=== PATIENT | female | born 1970 | race Caucasian/White ===

== ENCOUNTER 2017-02-07 19:59 | Inpatient (IN) | payer OTHER ==
[~2017-02-07] VITALS: Ht 160 cm; Wt 88.4 kg
[~2017-02-07 19:59] MED LIST: ALBU0.08 INH; ALBU1AER9 INH; ASPI325T39 PO; ATOR-24 PO; ATV/1 PO; EPP3/2 INJ; FLUD0.1T10 PO; LAMO25TA PO; LORA-741 PO; MOME100A INH; OMEP40CA PO; ONDA4TAB46 PO; OXYC1TAB3 PO; PREG1CAP28 PO; QUET-115 PO; ROPI3TAB PO; SERT1TAB92 PO; TEMA30CA4 PO; TOPI50TA16 PO
[2017-02-07 21:50] VITALS: BP 124/84; PULSE 69; TEMP 36.7; O2SAT 94; Ht 160 cm; Wt 88.4 kg
[2017-02-07] MEDS ORDERED: LORAZEPAM 2 MG/ML 1 ML VIAL IV PRN (22:00)
[2017-02-07] MEDS ORDERED: LAMO150T32 PO (22:26)
[2017-02-07] MEDS ORDERED: SODIUM CHLORIDE 0.9% 1000ML 1,000 ML IV SCH (22:30)
[2017-02-07] MEDS ORDERED: KETOROLAC TROMETHAMINE 15 MG/ML VIAL IV PRN (22:30)
[2017-02-07] MEDS ORDERED: ROPI4TAB3 PO (22:32)
[2017-02-07] MEDS ORDERED: BACL10TA PO (22:34)
[2017-02-07] MEDS ORDERED: OXYC15TA89 PO (22:36)
[2017-02-07] MEDS ORDERED: FURO-85 PO (22:38)
[2017-02-07] MEDS ORDERED: SUMA50TA15 PO (22:38)
[2017-02-07] MEDS ORDERED: DICL-201 PO (22:39)
--- NOTE | 2017-02-07 22:43 | History and Physical ---
History & Physical Date & Time of Service: February 07, 2017 at 22:32 Chief Complaint: Seizures Primary Care Physician: Sue Horta PA-C History of Present Illness Source: patient, clinic records, hospital records 46 year old female with history of Migraine, Pseudoseizures/Seizure, Chronic Back Pain, Depression and Anxiety, Asthma/COPD, presenting with seizure like episodes and syncope. Follows with Dr. Zurita for PCP and Dr. Varela for Neurology. Patient was at her baseline health until 1 week ago when she started to have generalized headaches, typical of her migraine. She was taking Imitrex as needed with provided some relief. Yesterday, patient apparently had witnessed seizure like episodes -"thrashing". Patient was not aware when this episodes are happening, and feels disoriented after. She had a witnessed seizure episode during a clinic visit yesterday, was sent to [place] [facility], with unremarkable work up and was discharged home. Today, patient was walking her driveway then felt weak, dizzy, and passed out hitting her head on the ground. Patient regained consciousness but was apparently having intermittent seizure like episodes again. Patient was brought again at [place] [facility], CT head unremarkable. Lamictal level pending. She was transferred to [facility] per family request. On my exam, patient seems drowsy but oriented x 3, answers questions appropriately. Main symptom is generalized headache, typical of her migraine episodes. Denies focal weakness/numbness, nausea, changes with vision, chest pain, dyspnea , palpitations, abdominal pain, changes with urination or BM. No other symptoms. Past Medical/Surgical History Medical Problems: (1) Asthma Status: Chronic (2) Chronic migraine Status: Chronic (3) Pseudoseizures Status: Chronic (4) Spinal cord stimulator status Status: Resolved Surgical Problems: (1) Previous back surgery Status: Resolved Family History Diabetes mellitus FHx: cancer FHx: heart disease Hypertension Kidney disease Kidney stones Seizures Social History Smoking Status: Current Every Day Smoker Drug Use: none Marital Status: Housing status: lives with family Occupational Status: unemployed Allergies Coded Allergies: Fentanyl (Verified Allergy, Severe, GI SYMPTOMS, 01/29/16) Morphine (Verified Allergy, Severe, GI SYMPTOMS, 01/29/16) Rofecoxib (Verified Allergy, Severe, HIVES, 01/29/16) Acetaminophen (Verified Allergy, Unknown, RASH, 01/29/16) Celecoxib (Verified Allergy, Unknown, RASH, 01/29/16) Doxycycline (Verified Allergy, Unknown, SWEATING, ITCHING, 01/29/16) Propoxyphene (Verified Allergy, Unknown, RASH, 01/29/16) Zolpidem (Verified Allergy, Unknown, UNKNOWN, 01/29/16) Home Medications Scheduled Aspirin (Aspirin Ec), 325 MG PO DAILY Atorvastatin (Lipitor), 40 MG PO HS Epinephrine (Epipen 2-Javier), 1 DOSE INJ PRN UD Fludrocortisone Acetate (Florinef), 0.1 MG PO BID Lamotrigine (Lamictal), 1 TAB PO BID Lorazepam (Ativan), 0.5 MG PO BID Lorazepam (Ativan), 1 MG PO HS Mometasone Furoate-Formoterol (Dulera 100/5 Mcg), 2 AER INH BID Omeprazole (Prilosec), 40 MG PO DAILY Pregabalin (Lyrica), 75 MG PO BID Quetiapine Fumarate (Quetiapine Fumarate), 150 MG PO HS Ropinirole (Requip), 3 MG PO HS Sertraline HCl (Sertraline HCl), 100 MG PO QAM Topiramate (Topamax), 50 MG PO BID Scheduled PRN Albuterol (Proair Hfa), 2 PUFF INH Q4 PRN for SOB/Wheezing Albuterol Soln (Proventil 0.083% 2.5MG/3ML), 2.5 MG INH Q4 PRN for SOB/Wheezing Ondansetron Hcl (Zofran), 4 MG PO Q8 PRN for Nausea Oxycodone Ir (Roxicodone Ir), 1 TAB PO Q6 PRN for Pain Temazepam (Restoril), 30 MG PO HS PRN for Sleep Review of Systems Constitutional- no fever; no weight loss Eyes- no acute visual changes ENT- no sinus drainage; no pharyngitis Pulmonary- no cough, no wheezing, no shortness of breath Cardiac- no chest pain, no palpitations, no orthopnea, no dependent edema GI- no nausea, no vomiting, no diarrhea, no melena, no hematochezia - no dysuria, no hematuria Musculoskeletal- no arthralgias, no myalgias Derm- no rashes, no new skin lesions, no changing skin lesions Hematologic- no unusual bruising, no unusual bleeding Lymphatics- no adenopathy Endocrine- no polyuria or polydipsia; no heat or cold intolerance Neuro- (+) as noted above Psych- no anxiety, no depression Physical Exam Vital Signs Date Time Temp Pulse Resp B/P Pulse Ox O2 Delivery O2 Flow Rate FiO2 02/07/17 21:50 36.7 69 16 124/84 94 Nasal Cannula 2.0 General Appearance: WD/WN, no apparent distress Head: normocephalic, atraumatic Eyes: normal inspection, PERRL, EOMI, sclerae normal ENT: normal ENT inspection, hearing grossly normal, pharynx normal Neck: supple, no adenopathy, thyroid normal, no JVD, + adenopathy present Respiratory/Chest: chest non-tender, lungs clear, normal breath sounds, no respiratory distress, no accessory muscle use Cardiovascular: regular rate, rhythm, no edema, no JVD, no murmur, normal peripheral pulses Abdomen/GI: normal bowel sounds, non tender, soft, no organomegaly Back: normal inspection, no CVA tenderness Extremities/Musculoskelatal: normal inspection, no calf tenderness, no pedal edema, normal range of motion 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 SYNCOPE s/p FALL - from orthostasis? vasovagal from pain secondary to headache? - preceded by weakness, dizziness - CT head from [place] today no acute process - check orthostatic VS IV fluids - EKG SEIZURE LIKE EPISODES - history of pseudoseizures - continue Lamictal - Seizure precautions MIGRAINE HEADACHE - start Prednisone taper - Imitrex PRN - patient has allergy to NSAIDs and Tylenol - discussed above with Dr. Magana CHRONIC BACK PAIN - continue usual medications DEPRESSION AND ANXIETY - stable per patient - continue usual medications ASTHMA, COPD, SMOKING - stable DVT prophylaxis SCDs fall risk, will avoid anticoag for now Full Code per patient Disposition pending PT/OT eval lives with family Advanced Directives Existing Living Will: Yes Existing Power of [employer] Dietary Service Supervisor: No VTE Prophylaxis VTE Risk Assessment Done? Y/N: Yes Risk Level: Moderate Given or contraindicated: SCD's
[2017-02-07 22:44] LABS: BASO % 0.5 %; BASO ABS # 0.04 K/uL (0-0.2); COMPLETE YES; EOS % 3.5 %; HEMATOCRIT 39.2 % (37-47); IG% 0.1 %; LYMPH ABS # 3.55 K/uL (1.2-3.4); MEAN CELL VOLUME 90.3 fL (80-100); MEAN CORPUSCULAR HGB CONC 32.1 g/dl (32-36); MEAN PLATELET VOLUME 10.9 fL (7.4-10.4); MONO % 4.4 %; NEUT % 51.5 %; PLATELET COUNT 249 K/uL (130-400); RED BLOOD COUNT 4.34 M/uL (4.2-5.4); WHITE BLOOD COUNT 8.87 K/uL (4.8-10.8)
[2017-02-07] MEDS ORDERED: TEMAZEPAM 15 MG CAP PO PRN (22:45)
--- NOTE | 2017-02-07 22:48 | DIAGNOSTIC IMAGING REPORT ---
SINGLE VIEW CHEST CLINICAL HISTORY: Seizure. FINDINGS: An AP, portable, upright chest radiograph is compared to study dated 01/29/2016. The examination is degraded by portable technique and apical lordotic positioning. The cardiomediastinal silhouette is unremarkable. Chronic interstitial thickening is unchanged. There is no airspace consolidation or pleural effusion. No pneumothorax is seen. The skeletal structures are osteopenic. The bony thorax is grossly intact. Intrathecal leads project over the lower thoracic spine. IMPRESSION: No acute cardiopulmonary abnormality. Electronically signed by: David Chaves M.D. 02/07/2017 10:47 PM Dictated Date/Time: 02/07/2017 10:46 PM
[2017-02-07] MEDS ORDERED: D5W AND NSS 1,000 ML IV SCH (23:00)
[2017-02-07 23:09] LABS: BUN/CREATININE RATIO 13.8 (10-20); CALCIUM 8.5 mg/dl (8.5-10.1); CREATININE 0.86 mg/dl (0.60-1.20); MAGNESIUM 2.4 mg/dl (1.8-2.4); POTASSIUM 3.8 mmol/L (3.5-5.1)
[2017-02-07 23:18] VITALS: BP 112/70; PULSE 63; TEMP 36.6; O2SAT 96
[2017-02-07 23:20] VITALS: BP 116/81; PULSE 71; O2SAT 97
[2017-02-07 23:23] VITALS: BP 121/83; PULSE 72; O2SAT 96
[2017-02-07] MEDS: LORAZEPAM 1 MG TAB PO SCH (23:45)
[2017-02-08] VITALS (9 sets, daily range): BP systolic 108–145; BP diastolic 66–84; PULSE 62–83; TEMP 36.6–37; O2SAT 95–98
[2017-02-08] MEDS: SUMATRIPTAN SUCCINATE 50 MG TAB PO PRN ×2 (00:22→18:10)
[2017-02-08] MEDS: PREGABALIN 75 MG CAP PO SCH ×3 (00:24→21:46)
[2017-02-08 05:20] LABS: URINE APPEARANCE CLEAR (CLEAR); URINE BILIRUBIN NEG (NEG); URINE COLOR YELLOW; URINE NITRITE NEG (NEG); URINE SPECIFIC GRAVITY 1.019 (1.000-1.030); UROBILINOGEN NEG (NEG)
[2017-02-08 05:21] LABS: MANUAL MICROSCOPIC REQUIRED? NO; REVIEW REQ? NO
[2017-02-08 06:43] LABS: BASO % 0.4 %; BASO ABS # 0.03 K/uL (0-0.2); COMPLETE YES; EOS % 0.4 %; HEMATOCRIT 43.2 % (37-47); IG% 0.1 %; LYMPH % 21.3 %; LYMPH ABS # 1.53 K/uL (1.2-3.4); MEAN CELL VOLUME 91.3 fL (80-100); MEAN CORPUSCULAR HGB CONC 32.9 g/dl (32-36); MEAN PLATELET VOLUME 11.1 fL (7.4-10.4); MONO % 1.7 %; NEUT % 76.1 %; PLATELET COUNT 264 K/uL (130-400); RED BLOOD COUNT 4.73 M/uL (4.2-5.4)
[2017-02-08 07:23] LABS: BUN/CREATININE RATIO 10.3 (10-20); CALCIUM 9.1 mg/dl (8.5-10.1); CREATININE 0.89 mg/dl (0.60-1.20); MAGNESIUM 2.5 mg/dl (1.8-2.4); POTASSIUM 4.9 mmol/L (3.5-5.1)
[2017-02-08] MEDS: LORAZEPAM 0.5 MG TAB PO SCH ×2 (08:26→14:37)
[2017-02-08] MEDS: TOPIRAMATE 50 MG TAB PO SCH ×2 (08:30→21:46)
[2017-02-08] MEDS: DICLOFENAC SOD EC 75 MG TABCR PO SCH ×2 (08:31→21:46)
[2017-02-08] MEDS: FLUDROCORTISONE ACETATE 0.1 MG TAB PO SCH ×2 (08:31→21:45)
[2017-02-08] MEDS: SERTRALINE HCL 100 MG TAB PO SCH (08:32)
[2017-02-08] MEDS: PANTOprazole SOD 40 MG TAB PO SCH (08:32)
[2017-02-08] MEDS: BACLOFEN 10 MG TAB PO SCH ×3 (08:32→21:46)
[2017-02-08] MEDS: ASPIRIN 325 MG ECTAB PO SCH (08:32)
[2017-02-08] MEDS: OXYCODONE HCL IR 5 MG TAB (IMMEDIATE RELEASE) PO PRN (11:01)
--- NOTE | 2017-02-08 13:37 | PROGRESS NOTE ---
DATE: 02/08/2017 FOR: Dr. Hackett. SUBJECTIVE: Bruna is 46 years old, is known to [facility] and has seen Dr. Varela over the years for what has been termed pseudoseizures and migraine-like headaches. The pseudoseizures were documented by absence of EEG abnormalities on a monitoring study done in [place] years ago, but she has continued to have some events that might have a true organic seizure qualities to them and it was very difficult to tell the difference. She had done well; however, on Lamictal at least in terms of her seizures on the current dose of 150 mg twice a day. At one time, she was on Topamax for headaches and the seizures, but this was to be stopped because of kidney stones and unfortunately her chronic migraines did not respond very well to the Lamictal. She went at least 8 months without any events and did manage to get her license back after [address] being able drive. About a week ago, she started having more generalized headaches, typical for migraine. She was taken Imitrex as needed, probably excessively and then yesterday had events of thrashing, which she now thinks were typical of her pseudoseizures but there was one event during which she became unresponsive, fell and struck the back of her head and apparently had a seizure episode during a clinic visit and was sent to the [place] [facility]. Workup was unremarkable. She was sent home, but then she has had more twitching events and was finally brought here to [facility] at the family's request. Since admission yesterday, she has had increased headaches, but has had no events of seizure like activity. Other medical problems include asthma, the chronic migraines, seizures and pseudoseizures. She has had a spinal cord stimulator on board for chronic intractable back pain. She has had prior back surgery. FAMILY HISTORY: Positive for diabetes, cancer, heart disease, hypertension, kidney disease, kidney stones and apparently seizures in other family members. SOCIAL HISTORY: Reveals her to be an everyday smoker. She is . She lives with family. She does not consume ethanol. She denies the use of illicit drugs. MEDICATION ALLERGIES: INCLUDE FENTANYL, MORPHINE, ROFECOXIB, ACETAMINOPHEN, CELECOXIB, DOXYCYCLINE, PROPOXYPHENE, AND ZOLPIDEM. ACTIVE MEDICATIONS: Include aspirin, atorvastatin, epinephrine as needed, Florinef, Lamictal 150 mg twice a day, lorazepam as needed, mometasone, omeprazole, Lyrica 75 mg twice a day, Seroquel 150 mg at bedtime, Requip 3 mg at bedtime, sertraline 100 mg in the morning and Topamax which I thought she was not taking and as listed as on board twice a day. As-needed medications include albuterol, Zofran and oxycodone which she claims she is not taking more than every 6 hours and temazepam. REVIEW OF SYSTEMS: Systems review reveals no recent fevers, sweats, chills. No new issues of her head, eyes, ears, nose and throat other than pain now at the site of where her head struck apparently the floor or the back of the chair and on the right occipital region. She has had no new cardiovascular, pulmonary, gastrointestinal, genitourinary, or musculoskeletal issues. Neurologically, she has had headaches which are chronic and essentially daily, which have increased over the past week and now the seizure-like activity, most of which is probably pseudoseizure, at least according to her self assessment, one of which may have been a valid suture. PHYSICAL EXAMINATION: VITAL SIGNS: Her blood pressure was 124/64, pulse was 69, and respirations were 16. She was afebrile. She was moderately over nourished. HEENT: Examination was unremarkable. There was some tenderness over the right parietal and occipital scalp. NECK: Supple. No bruits were heard. LUNGS: Were clear. HEART: Had a regular rhythm. There were no abdominal masses. Bowel sounds were normal. EXTREMITIES: Free of edema. NEUROLOGICALLY: Today, she is awake, alert, oriented in 3 spheres. She has normal extraocular movements and has a little significant tremor of the outstretched hands, worse with intension to some degree. I do not see any myoclonus or asterixis. She has hypoactive but present reflexes. Toes are downgoing. No Gomez signs are seen. Strength testing is normal. Sensation is intact. Cranial nerve examination again reveals normal extraocular movements, normal visual clark, normal facial motility and strength, clear speech and tongue protruding in the midline. DATA: CAT scan in [facility] said to be negative. Basic laboratory studies are unremarkable. IMPRESSION AND PLAN: At this point, it is not clear what happened in her case. The fall she described could have been mediated by some hypotension, could have been a true seizure as there is always a question in individuals like her about whether all of the events are pseudo events or whether there may be some true underlying seizure activity. Whatever the case, none of this has recurred since she was admitted and we are just going to observe her, I suspect overnight or may be for another day or so. The headaches are worse and perhaps this was a precipitating event and I am not sure if she was taking excessive amounts of her medications, although she denies it. At this point, I am just going to suggest we check an EEG. Unfortunately, we really do not have the facilities here to do continuous EEG monitoring. So if she begins to have more and more of these events, we are going to need to transfer to an institution where this monitoring would be available and that would have to be [facility] depending on her insurance coverages I would like to keep her Lamictal dose the same as it has been adequate over the last year to control her seizure like activity. I am going to add some steroids since this will break the headaches and I have already discussed this with Dr. Hackett last night. For now, she does seem a little better according to her self assessment. I will check her tomorrow. We may or may not get the EEG done this weekend. Again, I think this is going to be an academic question as I suspect tracing will be normal. ADALID
[2017-02-08] MEDS ORDERED: NURSING VERBAL MED ORDER ONE (14:30)
--- NOTE | 2017-02-08 15:38 | Progress Note ---
Internal Med Progress Note Date of Service: February 08, 2017. Provider Documentation: SUBJECTIVE: The patient was seen and examined No more episode of seizure Headache is better Denies any other symptoms OBJECTIVE: Vital Signs-as noted below Exam: General-No distress at rest Eyes-normal ENT-normal Neck-Supple Lungs-Clear to ausucltate bilaterally Heart-Regular,no murmur Abdomen-Benign,no masses,bowel sound present Extremities-no edema Neuro-AAOx3 No focal neuro deficit Lab data as noted below. ASSESSMENT & PLAN: SYNCOPE with FALL -differential could be due to vasovagal attack secondary to headache,seizures with history of Pseudoseizures - preceded by weakness, dizziness ad followed by fall -minor head injury - CT head from [place] [facility] -no significant lab abnormalities -IV fluids SEIZURE LIKE EPISODES - history of pseudoseizures - continue Lamictal - Seizure precautions -no more episodes -Neurology evaluation -appreciate input -EEG MIGRAINE HEADACHE - start Prednisone taper - Imitrex PRN - patient has allergy to NSAIDs and Tylenol CHRONIC BACK PAIN - continue usual medications DEPRESSION AND ANXIETY - stable per patient - continue usual medications ASTHMA, COPD, SMOKING - stable DVT prophylaxis SCDs fall risk, will avoid anticoag for now Full Code per patient Disposition PT/OT eval lives with family Vital Signs: Date Time Temp Pulse Resp B/P Pulse Ox O2 Delivery O2 Flow Rate FiO2 02/08/17 13:01 36.8 83 20 127/77 95 Room Air 02/08/17 12:00 98 Nasal Cannula 2.0 02/08/17 08:00 98 Nasal Cannula 2.0 02/08/17 07:25 37.0 77 20 125/78 96 02/08/17 04:00 Nasal Cannula 2.0 02/08/17 03:16 36.8 65 17 113/73 97 Nasal Cannula 2.0 02/07/17 23:59 Nasal Cannula 2.0 02/07/17 23:23 72 18 121/83 96 Nasal Cannula 2.0 02/07/17 23:20 71 18 116/81 97 Nasal Cannula 2.0 02/07/17 23:18 36.6 63 18 112/70 96 Nasal Cannula 2.0 02/07/17 21:50 36.7 69 16 124/84 94 Nasal Cannula 2.0 Lab Results: Results Past 24 Hours Test 02/07/17 22:32 02/08/17 00:00 02/08/17 06:33 Range/Units White Blood Count 8.87 7.20 4.8-10.8 K/uL Red Blood Count 4.34 4.73 4.2-5.4 M/uL Hemoglobin 12.6 14.2 12.0-16.0 g/dL Hematocrit 39.2 43.2 37-47 % Mean Corpuscular Volume 90.3 91.3 80-100 fL Mean Corpuscular Hemoglobin 29.0 30.0 25-34 pg Mean Corpuscular Hemoglobin Concent 32.1 32.9 32-36 g/dl Platelet Count 249 264 130-400 K/uL Mean Platelet Volume 10.9 11.1 7.4-10.4 fL Neutrophils (%) (Auto) 51.5 76.1 % Lymphocytes (%) (Auto) 40.0 21.3 % Monocytes (%) (Auto) 4.4 1.7 % Eosinophils (%) (Auto) 3.5 0.4 % Basophils (%) (Auto) 0.5 0.4 % Neutrophils # (Auto) 4.57 5.48 1.4-6.5 K/uL Lymphocytes # (Auto) 3.55 1.53 1.2-3.4 K/uL Monocytes # (Auto) 0.39 0.12 0.11-0.59 K/uL Eosinophils # (Auto) 0.31 0.03 0-0.5 K/uL Basophils # (Auto) 0.04 0.03 0-0.2 K/uL RDW Standard Deviation 45.1 45.9 36.4-46.3 fL RDW Coefficient of Variation 13.6 13.6 11.5-14.5 % Immature Granulocyte % (Auto) 0.1 0.1 % Immature Granulocyte # (Auto) 0.01 0.01 0.00-0.02 K/uL Sodium Level 147 145 136-145 mmol/L Potassium Level 3.8 4.9 3.5-5.1 mmol/L Chloride Level 111 110 98-107 mmol/L Carbon Dioxide Level 29 31 21-32 mmol/L Anion Gap 7.0 4.0 3-11 mmol/L Blood Urea Nitrogen 12 9 7-18 mg/dl Creatinine 0.86 0.89 0.60-1.20 mg/dl Est Creatinine Clear Calc Drug Dose 84.0 80.7 ml/min Estimated GFR () 93.2 89.5 Estimated GFR (Non- 80.4 77.2 BUN/Creatinine Ratio 13.8 10.3 10-20 Random Glucose 107 139 70-99 mg/dl Calcium Level 8.5 9.1 8.5-10.1 mg/dl Magnesium Level 2.4 2.5 1.8-2.4 mg/dl Urine Color YELLOW Urine Appearance CLEAR CLEAR Urine pH 6.0 4.5-7.5 Urine Specific [place] 1.019 1.000-1.030 Urine Protein NEG NEG Urine Glucose (UA) NEG NEG Urine Ketones NEG NEG Urine Occult Blood NEG NEG Urine Nitrite NEG NEG Urine Bilirubin NEG NEG Urine Urobilinogen NEG NEG Urine Leukocyte Esterase NEG NEG
[2017-02-08] MEDS: LORAZEPAM 1 MG TAB PO SCH (21:45)
[2017-02-08] MEDS: QUETIAPINE FUMARATE 100 MG TAB PO SCH (21:46)
[2017-02-08] MEDS: ROPINIROLE HCL 1 MG TAB PO SCH (21:46)
[2017-02-08] MEDS: ATORVASTATIN 40 MG TAB PO SCH (21:46)
[2017-02-09] VITALS (9 sets, daily range): BP systolic 101–138; BP diastolic 63–97; PULSE 63–83; TEMP 36.4–36.8; O2SAT 93–98
[2017-02-09 06:26] LABS: BASO % 0.2 %; BASO ABS # 0.02 K/uL (0-0.2); COMPLETE YES; EOS % 1.9 %; HEMATOCRIT 38.2 % (37-47); IG% 0.1 %; LYMPH % 38.8 %; LYMPH ABS # 4.38 K/uL (1.2-3.4); MEAN CELL VOLUME 90.7 fL (80-100); MEAN CORPUSCULAR HEMOGLOBIN 30.4 pg (25-34); MEAN CORPUSCULAR HGB CONC 33.5 g/dl (32-36); MEAN PLATELET VOLUME 11.1 fL (7.4-10.4); PLATELET COUNT 242 K/uL (130-400); RED BLOOD COUNT 4.21 M/uL (4.2-5.4)
[2017-02-09 06:59] LABS: BUN/CREATININE RATIO 10.4 (10-20); CALCIUM 8.8 mg/dl (8.5-10.1); CREATININE 0.98 mg/dl (0.60-1.20); MAGNESIUM 2.5 mg/dl (1.8-2.4); POTASSIUM 3.6 mmol/L (3.5-5.1)
[2017-02-09] MEDS: LORAZEPAM 0.5 MG TAB PO SCH ×2 (07:48→16:00)
[2017-02-09] MEDS: PREGABALIN 75 MG CAP PO SCH ×2 (07:48→20:44)
[2017-02-09] MEDS: TOPIRAMATE 50 MG TAB PO SCH ×2 (07:49→20:44)
[2017-02-09] MEDS: BACLOFEN 10 MG TAB PO SCH ×3 (07:49→20:46)
[2017-02-09] MEDS: DICLOFENAC SOD EC 75 MG TABCR PO SCH ×2 (07:49→20:45)
[2017-02-09] MEDS: FLUDROCORTISONE ACETATE 0.1 MG TAB PO SCH ×2 (07:50→20:44)
[2017-02-09] MEDS: PANTOprazole SOD 40 MG TAB PO SCH (07:50)
[2017-02-09] MEDS: SERTRALINE HCL 100 MG TAB PO SCH (07:50)
[2017-02-09] MEDS: ASPIRIN 325 MG ECTAB PO SCH (07:50)
[2017-02-09] MEDS: SUMATRIPTAN SUCCINATE 50 MG TAB PO PRN (07:51)
--- NOTE | 2017-02-09 11:24 | Progress Note ---
Internal Med Progress Note Date of Service: February 09, 2017. Provider Documentation: SUBJECTIVE: The patient was seen and examined No more episode of seizure Headache is worse today Denies any other symptoms OBJECTIVE: Vital Signs-as noted below Exam: General-No distress at rest Eyes-normal ENT-normal Neck-Supple Lungs-Clear to ausucltate bilaterally Heart-Regular,no murmur Abdomen-Benign,no masses,bowel sound present Extremities-no edema Neuro-AAOx3 No focal neuro deficit Lab data as noted below. ASSESSMENT & PLAN: SYNCOPE with FALL -differential could be due to vasovagal attack secondary to headache,seizures with history of Pseudoseizures - preceded by weakness, dizziness ad followed by fall -minor head injury - CT head from [place] [facility] -no significant lab abnormalities -Clinically better today except some headache SEIZURE LIKE EPISODES - history of pseudoseizures - continue Lamictal - Seizure precautions -no more episodes of seizure and or pseudoseizure -Neurology evaluation -appreciate input -EEG -pending MIGRAINE HEADACHE - start Prednisone taper - Imitrex PRN - patient has allergy to NSAIDs and Tylenol -Will increase Imitrex to 100 mg CHRONIC BACK PAIN - continue usual medications DEPRESSION AND ANXIETY - stable per patient - continue usual medications ASTHMA, COPD, SMOKING - stable DVT prophylaxis SCDs fall risk, will avoid anticoag for now Full Code per patient Disposition PT/OT danielle lives with family Discussed with the Vital Signs: Date Time Temp Pulse Resp B/P Pulse Ox O2 Delivery O2 Flow Rate FiO2 02/09/17 08:00 96 Room Air 02/09/17 07:59 36.8 63 17 113/63 96 Room Air 02/09/17 04:20 36.6 70 16 101/68 93 Room Air 02/09/17 04:00 Room Air 02/09/17 00:02 Room Air 02/08/17 23:49 36.7 62 18 108/66 96 Room Air 02/08/17 20:00 Room Air 02/08/17 19:17 36.6 65 20 145/74 97 Room Air 139/82 132/84 02/08/17 16:00 97 Nasal Cannula 2.0 02/08/17 15:33 36.7 73 20 126/69 95 Room Air 02/08/17 13:01 36.8 83 20 127/77 95 Room Air 02/08/17 12:00 98 Nasal Cannula 2.0 Lab Results: Results Past 24 Hours Test 02/09/17 06:05 Range/Units White Blood Count 11.30 4.8-10.8 K/uL Red Blood Count 4.21 4.2-5.4 M/uL Hemoglobin 12.8 12.0-16.0 g/dL Hematocrit 38.2 37-47 % Mean Corpuscular Volume 90.7 80-100 fL Mean Corpuscular Hemoglobin 30.4 25-34 pg Mean Corpuscular Hemoglobin Concent 33.5 32-36 g/dl Platelet Count 242 130-400 K/uL Mean Platelet Volume 11.1 7.4-10.4 fL Neutrophils (%) (Auto) 52.0 % Lymphocytes (%) (Auto) 38.8 % Monocytes (%) (Auto) 7.0 % Eosinophils (%) (Auto) 1.9 % Basophils (%) (Auto) 0.2 % Neutrophils # (Auto) 5.89 1.4-6.5 K/uL Lymphocytes # (Auto) 4.38 1.2-3.4 K/uL Monocytes # (Auto) 0.79 0.11-0.59 K/uL Eosinophils # (Auto) 0.21 0-0.5 K/uL Basophils # (Auto) 0.02 0-0.2 K/uL RDW Standard Deviation 44.7 36.4-46.3 fL RDW Coefficient of Variation 13.6 11.5-14.5 % Immature Granulocyte % (Auto) 0.1 % Immature Granulocyte # (Auto) 0.01 0.00-0.02 K/uL Sodium Level 144 136-145 mmol/L Potassium Level 3.6 3.5-5.1 mmol/L Chloride Level 109 98-107 mmol/L Carbon Dioxide Level 29 21-32 mmol/L Anion Gap 6.0 3-11 mmol/L Blood Urea Nitrogen 10 7-18 mg/dl Creatinine 0.98 0.60-1.20 mg/dl Est Creatinine Clear Calc Drug Dose 73.3 ml/min Estimated GFR () 79.6 Estimated GFR (Non- 68.7 BUN/Creatinine Ratio 10.4 10-20 Random Glucose 115 70-99 mg/dl Calcium Level 8.8 8.5-10.1 mg/dl Magnesium Level 2.5 1.8-2.4 mg/dl
[2017-02-09] MEDS: OXYCODONE HCL IR 5 MG TAB (IMMEDIATE RELEASE) PO PRN (12:20)
--- NOTE | 2017-02-09 13:02 | PROGRESS NOTE ---
DATE: 02/09/2017 Bruna has had no further seizure-like episodes since admission. EEG is normal, which is not unexpected in light of her history of pseudoseizures with some question remaining about how valid her true seizure frequency might be. Her headache is not much better, although she reported to Dr. Kelsey today that it was, but when I was in the room, she claimed it was not. She certainly does not appear to be in a lot of distress. Her exam is normal. The tremor that was fairly prominent on my exam yesterday is almost gone now and at this point I am simply going to suggest we wait her headache out, continue the steroid tapering, maintain her other medications without raising the Lamictal and hopefully by tomorrow should be able to be discharged to home with followup with Dr. Varela. I will check back with her tomorrow or later in the afternoon. ADALID
--- NOTE | 2017-02-09 14:25 | ELECTROENCEPHALOGRAPH REPORT ---
REQUESTING: Dr. Magana. CLINICAL DIAGNOSIS: History of seizures and pseudoseizures with recent increased headaches and seizure-like activity. ELECTROENCEPHALOGRAM DIAGNOSIS: Essentially normal during wakefulness. DESCRIPTION OF TRACING: This EEG was done as a bedside recording without a simultaneous video analysis of patient movement and behavior. Photic stimulation was performed. Hyperventilation was not and drowsiness and light sleep were not seen. During wakefulness, there is evidence for a well-developed background rhythm in the alpha range of up to 9-10 Hz of maximum frequency and 40-50 microvolts of maximum amplitude. This is maximum posterior head regions bilaterally symmetrical. Polymorphic mid to upper frequency modest voltage theta activity is seen over all head regions without clear focal or regional predominance. Anterior head region maximum bilaterally symmetrical low voltage fast activity in the beta range is present. At no time during the waking tracing is there evidence for potentially epileptogenic activity in the form of polyspike or spike wave bursts, focal sharp waves or focal spikes. INTERPRETATION: This EEG is essentially normal during wakefulness without evidence for focal or generalized encephalopathy and without evidence for potentially epileptogenic activity.
[2017-02-09] MEDS: LORAZEPAM 1 MG TAB PO SCH (20:43)
[2017-02-09] MEDS: ROPINIROLE HCL 1 MG TAB PO SCH (20:44)
[2017-02-09] MEDS: QUETIAPINE FUMARATE 100 MG TAB PO SCH (20:45)
[2017-02-09] MEDS: ATORVASTATIN 40 MG TAB PO SCH (20:46)
[2017-02-09] MEDS ORDERED: SUMATRIPTAN SUCCINATE 50 MG TAB PO PRN (21:00)
[2017-02-10] VITALS (10 sets, daily range): BP systolic 98–142; BP diastolic 55–98; PULSE 65–76; TEMP 36.6–37.4; O2SAT 95–98
[2017-02-10 06:41] LABS: BASO % 0.4 %; BASO ABS # 0.04 K/uL (0-0.2); COMPLETE YES; EOS % 1.4 %; IG% 0.4 %; LYMPH % 45.7 %; LYMPH ABS # 4.72 K/uL (1.2-3.4); MEAN CELL VOLUME 89.9 fL (80-100); MEAN CORPUSCULAR HEMOGLOBIN 30.3 pg (25-34); MEAN CORPUSCULAR HGB CONC 33.7 g/dl (32-36); MEAN PLATELET VOLUME 10.8 fL (7.4-10.4); MONO % 6.9 %; NEUT % 45.2 %; PLATELET COUNT 257 K/uL (130-400); RED BLOOD COUNT 4.56 M/uL (4.2-5.4); WHITE BLOOD COUNT 10.33 K/uL (4.8-10.8)
[2017-02-10 07:04] LABS: BUN/CREATININE RATIO 9.6 (10-20); CALCIUM 9.3 mg/dl (8.5-10.1); CREATININE 1.1 mg/dl (0.60-1.20); MAGNESIUM 2.5 mg/dl (1.8-2.4); POTASSIUM 3.8 mmol/L (3.5-5.1)
[2017-02-10] MEDS: LORAZEPAM 0.5 MG TAB PO SCH ×2 (07:47→13:51)
[2017-02-10] MEDS: ASPIRIN 325 MG ECTAB PO SCH (07:48)
[2017-02-10] MEDS: FLUDROCORTISONE ACETATE 0.1 MG TAB PO SCH (07:48)
[2017-02-10] MEDS: TOPIRAMATE 50 MG TAB PO SCH (07:48)
[2017-02-10] MEDS: BACLOFEN 10 MG TAB PO SCH ×2 (07:50→13:52)
[2017-02-10] MEDS: PANTOprazole SOD 40 MG TAB PO SCH (07:50)
[2017-02-10] MEDS: DICLOFENAC SOD EC 75 MG TABCR PO SCH (07:51)
[2017-02-10] MEDS: SERTRALINE HCL 100 MG TAB PO SCH (07:52)
[2017-02-10] MEDS: PREGABALIN 75 MG CAP PO SCH (07:56)
[2017-02-10] MEDS: OXYCODONE HCL IR 5 MG TAB (IMMEDIATE RELEASE) PO PRN ×2 (11:29→15:30)
--- NOTE | 2017-02-10 16:46 | PROGRESS NOTE ---
DATE: 02/10/2017 DATE: 02/10/2017. Bruna actually looked pretty good today and was relatively headache free, but this afternoon later on she had a severe headache and received Roxicodone. She normally does not take these at home and after receiving the medicine her headache is now back to a very low level. She is on a tapering course of steroids. She has not had any more seizures. Her exam is neurologically normal or at least baseline for her so at this point, I see no reason that she could not be discharged as we really found no evidence for recurrent seizure activity, structural disease, etc. to explain her current bout of headaches, I think these are simply recurrent migraines with some near syncopal events and perhaps some nonepileptic seizures. I would suggest she then be discharged on a tapering course of steroids and follow up with Dr. Varela as previously scheduled and continue her Lamictal at the current dose. I did see Dr. Kelsey in the hallway, discussed the case with him and I think she is planning to discharge her tonight. If she is still there in the morning I will take a look at her, but frankly at this point again I see no reason she needs to stay. ADALID
--- NOTE | 2017-02-10 16:52 | Progress Note ---
Internal Med Progress Note Date of Service: February 10, 2017. Provider Documentation: SUBJECTIVE: The patient was seen and examined No more episode of seizure Headache is much better Denies any other symptoms Will discharge her today OBJECTIVE: Vital Signs-as noted below Exam: General-No distress at rest Eyes-normal ENT-normal Neck-Supple Lungs-Clear to ausucltate bilaterally Heart-Regular,no murmur Abdomen-Benign,no masses,bowel sound present Extremities-no edema Neuro-AAOx3 No focal neuro deficit Lab data as noted below. ASSESSMENT & PLAN: SYNCOPE with FALL -differential could be due to vasovagal attack secondary to headache,seizures with history of Pseudoseizures - preceded by weakness, dizziness ad followed by fall -minor head injury - CT head from [facility] -no significant lab abnormalities -Clinically better today except some headache -Headache is much better -will discharge today SEIZURE LIKE EPISODES - history of pseudoseizures - continue Lamictal - Seizure precautions -no more episodes of seizure and or pseudoseizure -Neurology evaluation -appreciate input -EEG -no epileptogenic focus MIGRAINE HEADACHE - start Prednisone taper - Imitrex PRN - patient has allergy to NSAIDs and Tylenol -Will increase Imitrex to 100 mg -Migraine is controlled CHRONIC BACK PAIN - continue usual medications DEPRESSION AND ANXIETY - stable per patient - continue usual medications ASTHMA, COPD, SMOKING - stable DVT prophylaxis SCDs fall risk, will avoid anticoag for now Full Code per patient Disposition PT/OT eval lives with family Discussed with the Discharge today Vital Signs: Date Time Temp Pulse Resp B/P Pulse Ox O2 Delivery O2 Flow Rate FiO2 02/10/17 15:25 36.7 72 18 125/79 96 Nasal Cannula 02/10/17 15:09 97 Room Air 02/10/17 12:00 96 Room Air 02/10/17 11:32 76 18 142/98 96 Room Air 02/10/17 08:00 96 Room Air 02/10/17 07:24 37.4 66 18 123/84 98 Room Air 02/10/17 04:21 36.6 16 95 Room Air 02/10/17 04:21 97 Room Air 02/10/17 04:21 118/77 02/10/17 00:25 36.7 65 19 98/55 95 Room Air 02/10/17 00:00 97 Room Air 02/09/17 21:05 97 Room Air 02/09/17 19:26 36.7 74 20 127/86 98 Room Air Lab Results: Results Past 24 Hours Test 02/10/17 06:20 Range/Units White Blood Count 10.33 4.8-10.8 K/uL Red Blood Count 4.56 4.2-5.4 M/uL Hemoglobin 13.8 12.0-16.0 g/dL Hematocrit 41.0 37-47 % Mean Corpuscular Volume 89.9 80-100 fL Mean Corpuscular Hemoglobin 30.3 25-34 pg Mean Corpuscular Hemoglobin Concent 33.7 32-36 g/dl Platelet Count 257 130-400 K/uL Mean Platelet Volume 10.8 7.4-10.4 fL Neutrophils (%) (Auto) 45.2 % Lymphocytes (%) (Auto) 45.7 % Monocytes (%) (Auto) 6.9 % Eosinophils (%) (Auto) 1.4 % Basophils (%) (Auto) 0.4 % Neutrophils # (Auto) 4.68 1.4-6.5 K/uL Lymphocytes # (Auto) 4.72 1.2-3.4 K/uL Monocytes # (Auto) 0.71 0.11-0.59 K/uL Eosinophils # (Auto) 0.14 0-0.5 K/uL Basophils # (Auto) 0.04 0-0.2 K/uL RDW Standard Deviation 44.6 36.4-46.3 fL RDW Coefficient of Variation 13.6 11.5-14.5 % Immature Granulocyte % (Auto) 0.4 % Immature Granulocyte # (Auto) 0.04 0.00-0.02 K/uL Sodium Level 144 136-145 mmol/L Potassium Level 3.8 3.5-5.1 mmol/L Chloride Level 108 98-107 mmol/L Carbon Dioxide Level 30 21-32 mmol/L Anion Gap 6.0 3-11 mmol/L Blood Urea Nitrogen 11 7-18 mg/dl Creatinine 1.10 0.60-1.20 mg/dl Est Creatinine Clear Calc Drug Dose 65.3 ml/min Estimated GFR () 69.2 Estimated GFR (Non- 59.7 BUN/Creatinine Ratio 9.6 10-20 Random Glucose 97 70-99 mg/dl Calcium Level 9.3 8.5-10.1 mg/dl Magnesium Level 2.5 1.8-2.4 mg/dl
[2017-02-10] MEDS ORDERED: PRD20 PO (16:56)
--- NOTE | 2017-02-10 16:57 | Discharge Instructions ---
Discharge Instructions Date of Service February 10, 2017. Admission Reason for Admission: Seizures Discharge Discharge Diagnosis / Problem: Syncope,No seizure noted ,Migraine Discharge Goals Goal(s): Prevent Disease Progression Activity Recommendations Activity Limitations: resume your previous activity . Instructions / Follow-Up Instructions / Follow-Up Pleas make an appointment with your PCP in 1 week Current Hospital Diet Patient's current hospital diet: Regular Diet Discharge Diet Recommended Diet: Regular Diet Pending Studies Studies pending at discharge: no Medical Emergencies . Who to Call and When: Medical Emergencies: If at any time you feel your situation is an emergency, please call 911 immediately. . Non-Emergent Contact Non-Emergency issues call your: Primary Care Provider . Past History Medical & Surgical History: (1) Seizure (2) Chronic migraine (3) Asthma (4) Spinal cord stimulator status . "Provider Documentation" section prepared by Rocco Kelsey. . VTE Core Measure Inpt VTE Proph given/why not?: SCD's
--- NOTE | 2017-02-11 07:28 | Discharge Summary ---
Discharge Summary Date of Service February 11, 2017. Discharge Summary Admission Date: February 07, 2017 at 21:42 Discharge Date: February 10, 2017 Discharge Disposition: Home Principal Diagnosis: Syncope,No seizure noted ,Migraine Secondary Diagnoses/Problems: Please see H&P and Hospital progress note Consultations: Neurology Medication Reconciliation New Medications: Prednisone (Prednisone) 20 Mg Tab 20 MG PO DAILY for 12 Days, #15 TAB 2 po daily for 3 days ,1 and a1/2 po daily for 3 days,1 po daily for 3 days and then 1/2 po daily for 3 days Continued Medications: Albuterol (Proair Hfa) Aers 2 PUFF INH Q4 PRN for SOB/Wheezing Albuterol Soln (Proventil 0.083% 2.5MG/3ML) Nebu 2.5 MG INH Q4 PRN for SOB/Wheezing, EA Aspirin (Aspirin Ec) 325 Mg Tab 325 MG PO DAILY Atorvastatin (Lipitor) 40 Mg Tab 40 MG PO HS, TAB Baclofen (Lioresal) 10 Mg Tab 20 MG PO TID, TAB Diclofenac (Voltaren) 75 Mg Tabcr 75 MG PO BID, TAB WITH FOOD Epinephrine (Epipen 2-Javier) 0.3 Mg Inj 1 DOSE INJ PRN UD Fludrocortisone Acetate (Florinef) 0.1 Mg Tab 0.1 MG PO BID, TAB Furosemide (Lasix) 20 Mg Tab 1 TAB PO DAILY PRN for EDEMA for 90 Days, #90 TAB 1 Refill Lamotrigine (Lamictal) 150 Mg Tab 1 TAB PO BID for 30 Days, #60 TAB 1 Refill Lorazepam (Ativan) 0.5 Mg Tab 0.5 MG PO BID, TAB Lorazepam (Ativan) 1 Mg Tab 1 MG PO HS, TAB Omeprazole (Prilosec) 40 Mg Capcr 40 MG PO DAILY, CAP Ondansetron Hcl (Zofran) 4 Mg Tab 4 MG PO Q8 PRN for Nausea, TAB Oxycodone Hcl (Oxycontin) 15 Mg Tab 10 MG PO Q4-6 PRN for Pain, TAB Pregabalin (Lyrica) 75 Mg Cap 75 MG PO BID, CAP Quetiapine Fumarate (Quetiapine Fumarate) 100 Mg Tab 150 MG PO HS for 30 Days, TAB 1 Refill Ropinirole (Requip) 4 Mg Tab 4 MG PO HS, TAB Sertraline HCl (Sertraline HCl) 100 Mg Tab 100 MG PO QAM, #30 TAB 1 Refill Sumatriptan Succinate (Imitrex) 50 Mg Tab 50 MG PO PRN for Headache, TAB Temazepam (Restoril) 30 Mg Cap 30 MG PO HS PRN for Sleep, CAP Topiramate (Topamax) 50 Mg Tab 50 MG PO BID, TAB Admission Information HPI (per Admitting provider): 46 year old female with history of Migraine, Pseudoseizures/Seizure, Chronic Back Pain, Depression and Anxiety, Asthma/COPD, presenting with seizure like episodes and syncope. Follows with Dr. Zurita for PCP and Dr. Varela for Neurology. Patient was at her baseline health until 1 week ago when she started to have generalized headaches, typical of her migraine. She was taking Imitrex as needed with provided some relief. Yesterday, patient apparently had witnessed seizure like episodes -"thrashing". Patient was not aware when this episodes are happening, and feels disoriented after. She had a witnessed seizure episode during a clinic visit yesterday, was sent to [facility], with unremarkable work up and was discharged home. Today, patient was walking her driveway then felt weak, dizzy, and passed out hitting her head on the ground. Patient regained consciousness but was apparently having intermittent seizure like episodes again. Patient was brought again at [facility], CT head unremarkable. Lamictal level pending. She was transferred to [facility] per family request. On my exam, patient seems drowsy but oriented x 3, answers questions appropriately. Main symptom is generalized headache, typical of her migraine episodes. Denies focal weakness/numbness, nausea, changes with vision, chest pain, dyspnea , palpitations, abdominal pain, changes with urination or BM. No other symptoms. Past Medical/Surgical History Medical Problems: (1) Asthma Status: Chronic (2) Chronic migraine Status: Chronic (3) Pseudoseizures Status: Chronic (4) Spinal cord stimulator status Status: Resolved Surgical Problems: (1) Previous back surgery Status: Resolved Family History Diabetes mellitus FHx: cancer FHx: heart disease Hypertension Kidney disease Kidney stones Seizures Social History Smoking Status: Current Every Day Smoker Drug Use: none Marital Status: Housing status: lives with family Occupational Status: unemployed Allergies Coded Allergies: Fentanyl (Verified Allergy, Severe, GI SYMPTOMS, 01/29/16) Morphine (Verified Allergy, Severe, GI SYMPTOMS, 01/29/16) Rofecoxib (Verified Allergy, Severe, HIVES, 01/29/16) Acetaminophen (Verified Allergy, Unknown, RASH, 01/29/16) Celecoxib (Verified Allergy, Unknown, RASH, 01/29/16) Doxycycline (Verified Allergy, Unknown, SWEATING, ITCHING, 01/29/16) Propoxyphene (Verified Allergy, Unknown, RASH, 01/29/16) Zolpidem (Verified Allergy, Unknown, UNKNOWN, 01/29/16) Home Medications Scheduled Aspirin (Aspirin Ec), 325 MG PO DAILY Atorvastatin (Lipitor), 40 MG PO HS Epinephrine (Epipen 2-Javier), 1 DOSE INJ PRN UD Fludrocortisone Acetate (Florinef), 0.1 MG PO BID Lamotrigine (Lamictal), 1 TAB PO BID Lorazepam (Ativan), 0.5 MG PO BID Lorazepam (Ativan), 1 MG PO HS Mometasone Furoate-Formoterol (Dulera 100/5 Mcg), 2 AER INH BID Omeprazole (Prilosec), 40 MG PO DAILY Pregabalin (Lyrica), 75 MG PO BID Quetiapine Fumarate (Quetiapine Fumarate), 150 MG PO HS Ropinirole (Requip), 3 MG PO HS Sertraline HCl (Sertraline HCl), 100 MG PO QAM Topiramate (Topamax), 50 MG PO BID Scheduled PRN Albuterol (Proair Hfa), 2 PUFF INH Q4 PRN for SOB/Wheezing Albuterol Soln (Proventil 0.083% 2.5MG/3ML), 2.5 MG INH Q4 PRN for SOB/Wheezing Ondansetron Hcl (Zofran), 4 MG PO Q8 PRN for Nausea Oxycodone Ir (Roxicodone Ir), 1 TAB PO Q6 PRN for Pain Temazepam (Restoril), 30 MG PO HS PRN for Sleep Review of Systems Constitutional- no fever; no weight loss Eyes- no acute visual changes ENT- no sinus drainage; no pharyngitis Pulmonary- no cough, no wheezing, no shortness of breath Cardiac- no chest pain, no palpitations, no orthopnea, no dependent edema GI- no nausea, no vomiting, no diarrhea, no melena, no hematochezia - no dysuria, no hematuria Musculoskeletal- no arthralgias, no myalgias Derm- no rashes, no new skin lesions, no changing skin lesions Hematologic- no unusual bruising, no unusual bleeding Lymphatics- no adenopathy Endocrine- no polyuria or polydipsia; no heat or cold intolerance Neuro- (+) as noted above Psych- no anxiety, no depression Physical Ex - H&P Physical Exam Vital Signs Date Time Temp Pulse Resp B/P Pulse Ox O2 Delivery O2 Flow Rate FiO2 02/07/17 21:50 36.7 69 16 124/84 94 Nasal Cannula 2.0 General Appearance: WD/WN, no apparent distress Head: normocephalic, atraumatic Eyes: normal inspection, PERRL, EOMI, sclerae normal ENT: normal ENT inspection, hearing grossly normal, pharynx normal Neck: supple, no adenopathy, thyroid normal, no JVD, + adenopathy present Respiratory/Chest: chest non-tender, lungs clear, normal breath sounds, no respiratory distress, no accessory muscle use Cardiovascular: regular rate, rhythm, no edema, no JVD, no murmur, normal peripheral pulses Abdomen/GI: normal bowel sounds, non tender, soft, no organomegaly Back: normal inspection, no CVA tenderness Extremities/Musculoskelatal: normal inspection, no calf tenderness, no pedal edema, normal range of motion 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 SYNCOPE s/p FALL - from orthostasis? vasovagal from pain secondary to headache? - preceded by weakness, dizziness - CT head from [facility] today no acute process - check orthostatic VS IV fluids - EKG SEIZURE LIKE EPISODES - history of pseudoseizures - continue Lamictal - Seizure precautions MIGRAINE HEADACHE - start Prednisone taper - Imitrex PRN - patient has allergy to NSAIDs and Tylenol - discussed above with Dr. Magana CHRONIC BACK PAIN - continue usual medications DEPRESSION AND ANXIETY - stable per patient - continue usual medications ASTHMA, COPD, SMOKING - stable DVT prophylaxis SCDs fall risk, will avoid anticoag for now Full Code per patient Disposition pending PT/OT eval lives with family Advanced Directives Existing Living Will: Yes Existing Power of Net Development Manager: No VTE Prophylaxis VTE Risk Assessment Done? Y/N: Yes Risk Level: Moderate Given or contraindicated: SCD's Physical Exam (per Admitting): General Appearance: WD/WN, no apparent distress Head: normocephalic, atraumatic Eyes: normal inspection, PERRL, EOMI, sclerae normal ENT: normal ENT inspection, hearing grossly normal, pharynx normal Neck: supple, no adenopathy, thyroid normal, no JVD, + adenopathy present Respiratory/Chest: chest non-tender, lungs clear, normal breath sounds, no respiratory distress, no accessory muscle use Cardiovascular: regular rate, rhythm, no edema, no JVD, no murmur, normal peripheral pulses Abdomen/GI: normal bowel sounds, non tender, soft, no organomegaly Back: normal inspection, no CVA tenderness Extremities/Musculoskelatal: normal inspection, no calf tenderness, no pedal edema, normal range of motion 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, no motor/sensory deficits, alert , normal mood/affect, oriented x 3 Skin: normal color, warm/dry, no rash Lymphatic: no adenopathy Hospital Course SYNCOPE with FALL -differential could be due to vasovagal attack secondary to headache,seizures with history of Pseudoseizures - preceded by weakness, dizziness ad followed by fall -minor head injury - CT head from [facility] -no significant lab abnormalities -Clinically better today except some headache -Headache is much better -will discharge today SEIZURE LIKE EPISODES - history of pseudoseizures - continue Lamictal - Seizure precautions -no more episodes of seizure and or pseudoseizure -Neurology evaluation -appreciate input -EEG -no epileptogenic focus MIGRAINE HEADACHE - start Prednisone taper - Imitrex PRN - patient has allergy to NSAIDs and Tylenol -Will increase Imitrex to 100 mg -Migraine is controlled CHRONIC BACK PAIN - continue usual medications DEPRESSION AND ANXIETY - stable per patient - continue usual medications ASTHMA, COPD, SMOKING - stable DVT prophylaxis SCDs fall risk, will avoid anticoag for now Full Code per patient Disposition PT/OT cynthiajenny lives with family Discussed with the Discharge today Total time spent on discharge = 35 minutes This includes examination of the patient, discharge planning, medication reconciliation, and communication with other providers. Discharge Instructions Date of Service February 10, 2017. Admission Reason for Admission: Seizures Discharge Discharge Diagnosis / Problem: Syncope,No seizure noted ,Migraine Discharge Goals Goal(s): Prevent Disease Progression Activity Recommendations Activity Limitations: resume your previous activity . Instructions / Follow-Up Instructions / Follow-Up Pleas make an appointment with your PCP in 1 week Current Hospital Diet Patient's current hospital diet: Regular Diet Discharge Diet Recommended Diet: Regular Diet Pending Studies Studies pending at discharge: no Medical Emergencies . Who to Call and When: Medical Emergencies: If at any time you feel your situation is an emergency, please call 911 immediately. . Non-Emergent Contact Non-Emergency issues call your: Primary Care Provider . Past History Medical & Surgical History: (1) Seizure (2) Chronic migraine (3) Asthma (4) Spinal cord stimulator status . "Provider Documentation" section prepared by Rocco Kelsey. . VTE Core Measure Inpt VTE Proph given/why not?: SCD's <Electronically signed by Rocco Kelsey M.D.> Additional Copies To Sue Horta PA-C
== END 2017-02-10 19:35 | disposition home or self-care (01) | DRG 312 ==
LOC: C.2E 21:42
PROVIDERS: ADMIT Internal Medicine; ATTEND Internal Medicine
DX: R55 Syncope and collapse (principal); R56.9 Unspecified convulsions; F17.200 Nicotine dependence, unspecified, uncomplicated; J45.909 Unspecified asthma, uncomplicated; F32.9 Major depressive disorder, single episode, unspecified; F41.9 Anxiety disorder, unspecified; J44.9 Chronic obstructive pulmonary disease, unspecified; G89.29 Other chronic pain; G43.909 Migraine, unspecified, not intractable, without status migrainosus; M54.9 Dorsalgia, unspecified; W19.XXXA Unspecified fall, initial encounter; Z82.0 Family history of epilepsy and other diseases of the nervous system; Z82.49 Family history of ischemic heart disease and other diseases of the circulatory system; Z84.1 Family history of disorders of kidney and ureter; Z83.3 Family history of diabetes mellitus; Z79.82 Long term (current) use of aspirin